=== PATIENT | female | born 1985 | race Caucasian/White ===

== ENCOUNTER 2018-04-21 14:45 | Emergency (ER) | payer BC ==
--- NOTE | 2018-04-21 15:29 | EDPHYS ---
Physician Documentation [facility] Name: Nannette Rojo Age: 32 yrs Sex: Female : 1985 Arrival Date: 04/21/2018 Time: 14:49 Bed 11 Private MD: Jeremy Zaidi ED Physician Orestes Pena HPI: 04/21 15:15 This 32 yrs old Female presents to ER via Ambulatory with complaints of Open kav Wound. 15:23 The patient presents with cellulitis of the left leg and left dumont. Description: The kav affected area is very small, confluent, draining, erythematous. Onset: The symptoms/episode began/occurred 6 month(s) ago. Possible cause(s): insect sting, spider bite. Associated signs and symptoms: The patient has no apparent associated signs or symptoms. Modifying factors: the symptoms are alleviated by nothing, the symptoms are aggravated by shaving leg. Severity of symptoms: At their worst the symptoms were mild, just prior to arrival. The patient has experienced similar episodes in the past, a few times, and the symptoms today are exactly the same. The patient has not recently seen a physician. 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 - Social history:: Smoking status: Patient/guardian denies using tobacco. - Ebola Screening: : Patient negative for fever greater than or equal to 101.5 degrees Fahrenheit, and additional compatible Ebola Virus Disease symptoms Patient denies exposure to infectious person Patient denies travel to an Ebola-affected area in the 21 days before illness onset No symptoms or risks identified at this time. - Family history:: not pertinent. - Hospitalizations: : No recent hospitalization is reported. ROS: 15:23 Constitutional: Negative for fever, chills, and weight loss, Eyes: Negative for injury, kav pain, redness, and discharge, ENT: Negative for injury, pain, and discharge, Neck: Negative for injury, pain, and swelling, Cardiovascular: Negative for chest pain, palpitations, and edema, Respiratory: Negative for shortness of breath, cough, wheezing, and pleuritic chest pain, Abdomen/GI: Negative for abdominal pain, nausea, vomiting, diarrhea, and constipation, Back: Negative for injury and pain, : Negative for injury, bleeding, discharge, and swelling, MS/Extremity: Negative for injury and deformity, Neuro: Negative for headache, weakness, numbness, tingling, and seizure, Psych: Negative for depression, anxiety, suicide ideation, homicidal ideation, and hallucinations, Allergy/Immunology: Negative for hives, rash, and allergies, Endocrine: Negative for neck swelling, polydipsia, polyuria, polyphagia, and marked weight changes, Hematologic/Lymphatic: Negative for swollen nodes, abnormal bleeding, and unusual bruising. 15:23 Skin: Positive for cellulitis, of the . Exam: 15:23 Constitutional: This is a well developed, well nourished patient who is awake, alert, kav and in no acute distress. Head/Face: Normocephalic, atraumatic. Eyes: Pupils equal round and reactive to light, extra-ocular motions intact. Lids and lashes normal. Conjunctiva and sclera are non-icteric and not injected. Cornea within normal limits. Periorbital areas with no swelling, redness, or edema. ENT: Nares patent. No nasal discharge, no septal abnormalities noted. Tympanic membranes are normal and external auditory canals are clear. Oropharynx with no redness, swelling, or masses, exudates, or evidence of obstruction, uvula midline. Mucous membranes moist. Neck: Trachea midline, no thyromegaly or masses palpated, and no cervical lymphadenopathy. Supple, full range of motion without nuchal rigidity, or vertebral point tenderness. No Meningismus. Chest/axilla: Normal chest wall appearance and motion. Nontender with no deformity. No lesions are appreciated. Cardiovascular: Regular rate and rhythm with a normal S1 and S2. No gallops, murmurs, or rubs. Normal PMI, no JVD. No pulse deficits. Respiratory: Lungs have equal breath sounds bilaterally, clear to auscultation and percussion. No rales, rhonchi or wheezes noted. No increased work of breathing, no retractions or nasal flaring. Abdomen/GI: Soft, non-tender, with normal bowel sounds. No distension or tympany. No guarding or rebound. No evidence of tenderness throughout. Back: No spinal tenderness. No costovertebral tenderness. Full range of motion. MS/ Extremity: Pulses equal, no cyanosis. Neurovascular intact. Full, normal range of motion. Neuro: Awake and alert, GCS 15, oriented to person, place, time, and situation. Cranial nerves II-XII grossly intact. Motor strength 5/5 in all extremities. Sensory grossly intact. Cerebellar exam normal. Normal gait. Psych: Awake, alert, with orientation to person, place and time. Behavior, mood, and affect are within normal limits. 15:23 Skin: cellulitis, that is mild, confluent, on the left dumont. Vital Signs: 15:09 BP 130 / 75; Pulse 84; Resp 18; Temp 98.0; Pulse Ox 98% on R/A; Weight 80.74 kg; Height aj 5 ft. 5 in. (165.10 cm); 15:09 Body Mass Index 29.62 (80.74 kg, 165.10 cm) MDM: 15:14 Medical screening is not applicable. formerly [facility] 15:23 Data reviewed: vital signs, nurses notes. ka Administered Medications: No medications were administered Disposition: 16:10 Co-signature as Attending Physician, Orestes Pena MD I agree with the assessment and kdr plan of care. Disposition: 04/21/18 15:29 Discharged to Home. Impression: Cellulitis of left lower limb. - Condition is Stable. - Discharge Instructions: Cellulitis, [id number]. - Prescriptions for Bactroban 2 % Topical Ointment - Apply to affected area 1 application by TOPICAL route every 12 hours; 15 gram. Bactrim DS 800- 160 mg Oral Tablet - take 1 tablet by ORAL route every 12 hours for 10 days; 20 tablet. - Medication Reconciliation Form, Thank You Letter, Antibiotic Education, Prescription Opioid Use form. - Follow up: Jeremy Zaidi MD; When: 5 - 6 days; Reason: If symptoms return, Recheck today's complaints, Continuance of care, Re-evaluation by your physician. - Problem is new. - Symptoms have improved. Signatures: Fang Trujillo RN RN aj Rittger, Kevin, MD MD kdr Vern, Katherine, ENTERPRISE APPLICATION ARCHITECT ENTERPRISE APPLICATION ARCHITECT Tracey Carter RN RN iw Corrections: (The following items were deleted from the chart) 15:23 15:23 The patient was bitten on the left dumont, by an unknown animal, ezequiel nieves 15:39 15:29 04/21/2018 15:29 Discharged to Home. Impression: Cellulitis of left lower limb. iw Condition is Stable. Forms are Medication Reconciliation Form, Thank You Letter, Antibiotic Education, Prescription Opioid Use. Follow up: Jeremy Zaidi; When: 5 - 6 days; Reason: If symptoms return, Recheck today's complaints, Continuance of care, Re-evaluation by your physician. Problem is new. Symptoms have improved. ezequiel
--- NOTE | 2018-04-21 15:29 | ER ---
Nurse's Notes [facility] Name: Nannette Rojo Age: 32 yrs Sex: Female : 1985 Arrival Date: 04/21/2018 Time: 14:49 Bed 11 Private MD: Jeremy Zaidi Diagnosis: Cellulitis of left lower limb Presentation: 04/21 15:07 Presenting complaint: Patient states: Non healing wound to left dumont for "months". Seen aj in an ER for same complaint in October and november. Transition of care: patient was not received from another setting of care. Onset of symptoms was October 2017. Risk Assessment: Do you want to hurt yourself or someone else? Patient reports no desire to harm self or others. Care prior to arrival: None. 15:07 Method Of Arrival: Ambulatory aj 15:07 Acuity: FILMOENA 5 aj 15:39 Initial Sepsis Screen: Does the patient meet any 2 criteria? No. Patient's initial iw sepsis screen is negative. Does the patient have a suspected source of infection? No. Patient's initial sepsis screen is negative. Triage Assessment: 15:09 General: Appears in no apparent distress. comfortable, Behavior is calm, cooperative, aj appropriate for age. Neuro: Level of Consciousness is awake, alert, obeys commands, Oriented to person, place, time, situation, Appropriate for age. Respiratory: Airway is patent Respiratory effort is even, unlabored, Respiratory pattern is regular, symmetrical. Derm: Skin is intact, is healthy with good turgor, Skin is pink, warm \\T\\ dry. normal, Abscess located on left dumont. 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 - Social history:: Smoking status: Patient/guardian denies using tobacco. - Ebola Screening: : Patient negative for fever greater than or equal to 101.5 degrees Fahrenheit, and additional compatible Ebola Virus Disease symptoms Patient denies exposure to infectious person Patient denies travel to an Ebola-affected area in the 21 days before illness onset No symptoms or risks identified at this time. - Family history:: not pertinent. - Hospitalizations: : No recent hospitalization is reported. Screenin:25 Abuse screen: Denies threats or abuse. Denies injuries from another. Nutritional iw screening: No deficits noted. Tuberculosis screening: No symptoms or risk factors identified. Fall Risk None identified. Assessment: 15:25 General: Appears in no apparent distress. comfortable, Behavior is calm, cooperative. iw Pain: Complains of pain in left dumont. Neuro: Level of Consciousness is awake, alert, obeys commands, Oriented to person, place, time, situation, Moves all extremities. Full function. Cardiovascular: Patient's skin is warm and dry. Respiratory: Respiratory effort is even, unlabored, Respiratory pattern is regular, symmetrical. GI: No signs and/or symptoms were reported involving the gastrointestinal system. Derm: Skin is pink, warm \\T\\ dry. normal. Musculoskeletal: Range of motion: intact in all extremities. Vital Signs: 15:09 BP 130 / 75; Pulse 84; Resp 18; Temp 98.0; Pulse Ox 98% on R/A; Weight 80.74 kg; Height aj 5 ft. 5 in. (165.10 cm); 15:09 Body Mass Index 29.62 (80.74 kg, 165.10 cm) aj ED Course: 14:49 Patient arrived in ED. mr 14:49 Jeremy Zaidi MD is Private Physician. mr 15:09 Triage completed. aj 15:09 Arm band placed on left wrist. Patient placed in waiting room, Patient notified of wait aj time. 15:13 Tracey Garcia, RN is Primary Nurse. iw 15:14 Mariaelena Lee FNP is PHCP. kav 15:14 Orestes Pena MD is Attending Physician. kav 15:25 Patient has correct armband on for positive identification. iw 15:25 No provider procedures requiring assistance completed. Patient did not have IV access iw during this emergency room visit. 15:27 Jeremy Zaidi MD is Referral Physician. kav Administered Medications: No medications were administered Outcome: 15:25 Discharged to home ambulatory, with family. iw 15:25 Condition: good 15:25 Discharge instructions given to patient, Instructed on discharge instructions, follow up and referral plans. medication usage, Demonstrated understanding of instructions, follow-up care, medications, Prescriptions given X 2. 15:29 Discharge ordered by . kaveda 15:39 Patient left the ED. iw Signatures: Fang Trujillo, Mariaelena Kenney RN, Roselyn Mccullough mr Tracey Garcia RN RN iw
[2018-04-21 15:55] VITALS: BP 130/75; TEMP 98; O2SAT 98
== END 2018-04-21 15:39 | disposition home or self-care (01) ==
LOC: ER 14:45
DX: L03.116 Cellulitis of left lower limb (principal)
CPT/HCPCS: 99282

== ENCOUNTER 2023-09-04 08:28 | Emergency (ER) | payer OTHER ==
--- OUTSIDE RECORDS SUMMARY | 2023-09-04 08:31 | XMS REPORT | Continuity of Care Document ---
:1985 Author Organization [facility] t Address [address] [place] [address] Care Team Providers Name Role Phone Pcp, Patient Does Not Have A Primary Care Physician [id number] Neha Ramos Attending Clinician Unavailable [email or web address] Attending Clinician Unavailable ROSHNI GUERRERO Attending Clinician Unavailable GRIS TATE Attending Clinician Unavailable YARIEL LYONS Attending Clinician Unavailable Doctor Unassigned, [place] Attending Clinician Unavailable RISHABH DEMRACO Attending Clinician Unavailable [email or web address] Admitting Clinician Unavailable Payers Payer Name Policy Type Policy Effective Date Expiration Date Sour ce Number 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 See scanned records History of History of Disease Active Overview : Univers 6-15 Formattin ity o f delivery, delivery, 00:00: [place] of this [place] currently currently 00 note Medi [facility] might be Bran ch different from the original. As per patient because of oligohydr amnios and IUGROnly 1 all others were term History of History of Disease Active 2015- U nivers oligohydra oligohydra 6-15 it y of mnios in mnios in 00:00: [place] prior prior 00 Medical , , Br anch currently currently Multiparit Multiparit Disease Active U nivers y y 6-15 ity of 00:00: [place] 00 Medical Branch Supervisio Supervisio Disease Active U nivers n of high n of high 6-15 ity of risk risk 00:00: [place] , , 00 Me dical antepartum antepartum Br anch Obesity Obesity Disease Active Univers affecting affecting 6-15 [place] History of History of Disease Active U nivers stomach stomach 6-15 ity of cancer cancer 00:00: [place] 00 Medical Branch History of History of Disease Active U nivers prior prior 6-15 [place] with IUGR with IUGR 00 [facility] Branch [id number] Thyroid Problem Active Commo n nodule [facility] Allergies, Adverse Reactions, Alerts Allergy Allergy Status Severity Reaction(s) Onset Inactive Treating Comm ents Source Name Type Date Date Clinician NO KNOWN Drug Active Univers ALLERGIE Class ity of S [facility] Social History Social Habit Start Date Stop Date Quantity Comments Source History of Tobacco [facility] - Use [facility] Sexual orientation Univer [facility] Exposure to 2021-05-17 2021-06-16 Yes University of SARS-CoV-2 (event) 00:00:00 10:56:00 [facility] Alcohol intake 2019-04-10 2019-04-10 0 /d University of 00:00:00 00:00:00 [facility] History of Social 2019-04-10 2019-04-10 Univers ity of function 00:00:00 00:00:00 [facility] Tobacco use and 2013-05-09 2013-05-09 Smokeless Universit y of exposure 00:00:00 00:00:00 tobacco non-user [facility] Sex Assigned At [birth year] Universit y of 00:00:00 00:00:00 [facility] Smoking Status Start Date Stop Date Source Never Smoker [facility] Medications Ordered Filled Start Stop Current Ordering Indication Dosage Frequency Signature Comments Components Source Medication Medication Date Date Medication? Clinician (SIG) Name Name proMETHazin Yes [id number] 25mg Take 1 Univers e 7-14 tablet by ity of (PHENERGAN) 00:00: mouth [place] 25 mg 00 every 6 Medical tablet (six) Branch hours as needed for Nausea and Vomiting (N/V). PNV without Yes [id number] 1{each} Take 1 Univers Ca-Iron 6-15 Each by ity of PsCmplx-FA 00:00: mouth Shukri (SELECT-OB, 00 daily. Medica l FOLIC Branch ACID,) 29-1 mg Chew Prilosec 10 Prilosec 10 No Prilosec MG MG 10 MG No 1{table QD 28-0.8 MG 28-0.8 MG t} 28-0.8 MG Magnesium Magnesium No Magnesium 400 MG 400 MG 400 MG Calcium 600 Calcium 600 No 1{table BID Calcium MG MG t_with_ 600 MG meals} Gentle Iron Gentle Iron No 1{capsu QD Gentle 28-60-0.008 28-60-0.008 le} Iron -0.4 MG -0.4 MG 28-60-0.00 8-0.4 MG Potassium Potassium No 1{table QD Potassium 99 MG 99 MG t} 99 MG Immunizations Ordered Filled Date Status Comments Source Immunization Name Immunization Name Pneumovax (PPSV23) Pneumovax (PPSV23) 2020-10-01 Completed Common [facility] - 09:53:00 [facility] Flucelvax - single Flucelvax - single 2020-08-13 Completed [facility] - dose syringe dose syringe 09:59:00 [facility] TDAP Unknown Completed [facility] Vital Signs Vital Name Observation Time Observation Value Comments Source height 2021-01-02 16:00:00 64.5 [in_i] [facility] weight 2021-01-02 16:00:00 192 [lb_av] [facility] temperature 2021-01-02 16:00:00 97.9 [degF] [facility] bmi 2021-01-02 16:00:00 32.44 kg/m2 [facility] oximetry 2021-01-02 16:00:00 100 % [facility] respiratory rate 2021-01-02 16:00:00 16 /min Comm on [facility] blood pressure 2021-01-02 16:00:00 107 mm[Hg] Common [facility] - systolic [facility] blood pressure 2021-01-02 16:00:00 61 mm[Hg] Common [facility] - diastolic [facility] Procedures This patient has no known procedures. Encounters Start End Encounter Admission Attending Care Care Encounter Source Date/Time Date/Time Type Type Clinicians Facility Department ID 2022-05-27 Outpatient [place], STLMLC STLMLC [id number] Common 15:16:00 Neha [facility] 2021-12-04 Outpatient [place], STLMLC STLMLC [id number] Common 14:15:51 Neha [id number] [facility] 2021-12-04 Outpatient [place], STLMLC STLMLC [id number] Common 12:33:14 Neha [facility] 2021-12-04 Outpatient [place], STLMLC STLMLC [id number] Common 12:32:16 Neha [id number] [facility] 2021-12-04 Outpatient [place], STLMLC STLMLC [id number] Common 12:07:28 Neha [id number] [facility] 2023-09-02 2023-09-02 Outpatient GC_GCBZW_Ka PRIV PRIV [id number] [facility] 00:00:00 00:00:00 diyala_S [id number] Medic al 2023-08-02 2023-08-02 Outpatient GC_GCBZW_Ka PRIV PRIV [id number] [facility] 00:00:00 00:00:00 diyala_S [id number] Medic al 2023-08-02 2023-08-02 Outpatient GC_GCBZW_Ka PRIV PRIV [id number] [facility] 00:00:00 00:00:00 diyala_S [id number] Medic al 2023-08-02 2023-08-02 Outpatient GC_GCBZW_Ka PRIV PRIV [id number] [facility] 00:00:00 00:00:00 diyala_S [id number] Medic al 2023-07-31 2023-07-31 Outpatient GC_GCBZW_Ka PRIV PRIV [id number] [facility] 00:00:00 00:00:00 diyala_S [id number] Medic al 2023-07-30 2023-07-30 Outpatient GC_GCBZW_Ka PRIV PRIV [id number] [facility] 00:00:00 00:00:00 diyala_S [id number] Medic al 2023-07-17 2023-07-17 Outpatient GC_GCBZW_Ka PRIV PRIV [id number] [facility] 00:00:00 00:00:00 diyala_S [id number] Medic al 2023-07-16 2023-07-16 Outpatient GC_GCBZW_Ka PRIV PRIV [id number] [facility] 00:00:00 00:00:00 diyala_S [id number] Medic al 2023-05-27 2023-05-27 Outpatient GC_GCBZW_Ka PRIV PRIV [id number] [facility] 00:00:00 00:00:00 diyala_S [id number] Medic al 2023-05-25 2023-05-25 Outpatient GC_GCBZW_Ka PRIV PRIV [id number] [facility] 00:00:00 00:00:00 diyala_S [id number] Medic al 2022-01-10 2022-01-10 Outpatient R ROSHNI GUERRERO [facility] [id number] Univers [facility] 2021-12-27 Outpatient R ROSHNI GUERRERO [facility] [id number] Univers 14:00:00 14:00:00 [facility] 2021-07-20 2021-07-20 Outpatient R BEBETO [facility] [id number] Univers 08:00:00 [facility]:00:[facility] 2021-06-16 Outpatient R SERENA [facility] [id number] Univers 17:40:00 17:40:00 , YARIEL escamilla [facility] 2021-01-02 2021-01-02 OFFICE STLMLC STLMLC [id number] mmon 00:00:00 00:00:00 VISIT EST Spir it PT LEVEL 3 - [facility] 2020-07-14 2020-07-14 Patient Doctor ELMIRA [id number] Univers 00:00:00 00:00:00 Secure Msg Unassigned, YOHANNES [id number] ity of [place] [facility] [id number] Eric as [phone] [address] 2020-07-13 2020-07-13 Outpatient Horacio DEMARCO [facility] [id number] Univers 08:40:00 08:40:00 RISHABH escamilla [facility] Results This patient has no known results.
[2023-09-04 09:21] LABS: SARS-CoV-2 Antigen Rapid Res Negative (Negative)
--- NOTE | 2023-09-04 09:24 | EDPHYS ---
Physician Documentation [facility] Name: Nannette Rojo Age: 38 yrs Sex: Female : 1985 Arrival Date: 09/04/2023 Time: 08:28 Bed IW1 Private MD: ED Physician Yefri Bocanegra HPI: 09/04 08:53 This 38 yrs old Female presents to ER via Ambulatory with complaints of Flu Symptoms. sb4 08:53 Onset: The symptoms/episode began/occurred 5 day(s) ago. Associated signs and symptoms: sb4 Pertinent positives: congestion, cough, fever, headache, sore throat, Pertinent negatives: chest pain, shortness of breath. Modifying factors: The patient symptoms are alleviated by acetaminophen, ibuprofen, the patient symptoms are aggravated by nothing. The patient has not experienced similar symptoms in the past, but family has similar symptoms, daughter. The patient has not recently seen a physician. Historical: - Allergies: 08:43 No Known Allergies; hb - PMHx: 08:43 abdominal cancer; hb - Immunization history:: Adult Immunizations up to date. - Social history:: Smoking status: Patient denies any tobacco usage or history of. ROS: 09:30 Cardiovascular: Negative for chest pain, palpitations, and edema, Skin: Negative for sb4 injury, rash, and discoloration, Neuro: Negative for headache, weakness, numbness, tingling, and seizure, 09:30 Constitutional: Positive for fatigue, fever, 09:30 ENT: Positive for sinus congestion, sore throat, 09:30 Respiratory: Positive for cough, 09:30 Abdomen/GI: Positive for nausea, 09:30 All other systems are negative, Exam: 09:30 Constitutional: This is a well developed, well nourished patient who is awake, alert, sb4 and in no acute distress. Head/Face: Normocephalic, atraumatic. Eyes: Extra-ocular motions intact. Periorbital areas with no swelling, redness, or edema. Cardiovascular: Regular rate and rhythm with a normal S1 and S2. Respiratory: Lungs have equal breath sounds bilaterally, clear to auscultation and percussion. No rales, rhonchi or wheezes noted. No increased work of breathing, no retractions or nasal flaring. Skin: Warm, dry with normal turgor. Normal color with no rashes, no lesions, and no evidence of cellulitis. MS/ Extremity: Pulses equal, no cyanosis. Neurovascular intact. Full, normal range of motion. Neuro: Awake and alert, GCS 15, oriented to person, place, time, and situation. Motor strength 5/5 in all extremities. Sensory grossly intact. 09:30 ENT: sinus tenderness, nasal congestion. Vital Signs: 08:43 BP 126 / 88; Pulse 78; Resp 16; Temp 99(TE); Pulse Ox 100% on R/A; Weight 79.38 kg; hb Height 5 ft. 5 in. ; Pain 6/10; 08:43 Body Mass Index 29.12 (79.38 kg, 165.1 cm) hb 08:43 Pain Scale: Adult hb MDM: 08:48 Patient medically screened. sb4 09:30 Differential diagnosis: viral Infection, bacterial infection, URI, bronchitis. Data sb4 reviewed: vital signs, nurses notes, lab test result(s), and as a result, I will discharge patient. Counseling: I had a detailed discussion with the patient and/or guardian regarding the historical points, exam findings, and any diagnostic results supporting the discharge/admit diagnosis, lab results, to return to the emergency department if symptoms worsen or persist or if there are any questions or concerns that arise at home. 09/04 08:46 Order name: SARS RAPID; Complete Time: 09:23 sb4 09/04 08:46 Order name: Flu; Complete Time: 09:23 sb4 Administered Medications: No medications were administered Disposition: 09:49 Co-signature as Attending Physician, Yefri Bocanegra MD I reviewed the patient's care rt provided by the Advanced Practice Provider and agree with the diagnosis and treatment plan. Disposition Summary: 09/04/23 09:23 Discharge Ordered Notes: Location: Home sb4 Problem: an ongoing problem sb4 Symptoms: are unchanged sb4 Condition: Stable sb4 Diagnosis - Acute upper respiratory infection, unspecified sb4 Followup: sb4 - With: Emergency Department - When: As needed - Reason: Trouble breathing, Worsening of condition Discharge Instructions: - Discharge Summary Sheet sb4 - Upper Respiratory Infection, Adult, [id number] sb4 Forms: - Work release form hb - Medication Reconciliation Form sb4 - Thank You Letter sb4 - Antibiotic Education sb4 - Prescription Opioid Use sb4 - Patient Portal Instructions sb4 - Leadership Thank You Letter sb4 Prescriptions: - Augmentin 875-125 mg Oral Tablet - take 1 tablet ORAL route every 12 hours for 10 days; 20 tablet; Refills: 0, sb4 Product Selection Permitted - Medrol (Jayro) 4 mg Oral Tablets, Dose Pack - take 1 tablet ORAL route as directed - follow package instructions; 1 packet; sb4 Refills: 0, Product Selection Permitted Signatures: Dispatcher [employer] Kortney Simmons, Flori Singh RN, PA-C PAJbC sb4 Yefri Bocanegra MD MD rt
--- NOTE | 2023-09-04 09:24 | ER ---
Nurse's Notes [facility] Name: Nannette Rojo Age: 38 yrs Sex: Female : 1985 Arrival Date: 09/04/2023 Time: 08:28 Bed IW1 Private MD: Diagnosis: Acute upper respiratory infection, unspecified Presentation: 09/04 08:43 Chief complaint: Runny nose, congestion, headache, dizziness, nausea, fever, sore hb throat, and body aches x 4 days. Coronavirus screen: Client presents with at least one sign or symptom that may indicate coronavirus-19. Standard/surgical mask placed on the client. Provider contacted for isolation considerations. Ebola Screen: No symptoms or risks identified at this time. Initial Sepsis Screen: Does the patient meet any 2 criteria? No. Patient's initial sepsis screen is negative. Does the patient have a suspected source of infection? No. Patient's initial sepsis screen is negative. Risk Assessment: Do you want to hurt yourself or someone else? Patient reports no desire to harm self or others. Onset of symptoms was September 01, 2023. 08:43 Method Of Arrival: Ambulatory hb 08:43 Acuity: FILOMENA 4 hb Triage Assessment: 08:45 General: Appears in no apparent distress. Behavior is calm, cooperative. Pain: Pain hb currently is 6 out of 10 on a pain scale. EENT: Reports sore throat. Neuro: Level of Consciousness is awake, alert, obeys commands, Oriented to person, place, time, situation. Cardiovascular: Patient's skin is warm and dry. Respiratory: Reports cough that is Respiratory effort is even, unlabored, Respiratory pattern is regular, symmetrical. GI: Reports nausea. : No signs and/or symptoms were reported regarding the genitourinary system. Derm: Skin is pink, warm \T\ dry. Musculoskeletal: Reports body aches. Historical: - Allergies: 08:43 No Known Allergies; hb - PMHx: 08:43 abdominal cancer; hb - Immunization history:: Adult Immunizations up to date. - Social history:: Smoking status: Patient denies any tobacco usage or history of. Screenin:00 [facility] ED Fall Risk Assessment (Adult) Score/Fall Risk Level 0 - 2 = Low Risk hb Oriented to surroundings, Maintained a safe environment. Abuse screen: Denies threats or abuse. Denies injuries from another. Nutritional screening: No deficits noted. Tuberculosis screening: No symptoms or risk factors identified. Assessment: 09:28 General: See triage assessment . hb Vital Signs: 08:43 BP 126 / 88; Pulse 78; Resp 16; Temp 99(TE); Pulse Ox 100% on R/A; Weight 79.38 kg; hb Height 5 ft. 5 in. ; Pain 6/10; 08:43 Body Mass Index 29.12 (79.38 kg, 165.1 cm) hb 08:43 Pain Scale: Adult hb ED Course: 08:31 Patient arrived in ED. ts1 08:32 [facility] Velasquez [facility]. sb4 08:32 Yefri Bocanegra MD is Attending Physician. sb4 08:45 Triage completed. hb 08:45 Arm band placed on. hb 08:51 SARS RAPID Sent. hb 08:51 Flu Sent. hb 09:00 Patient has correct armband on for positive identification. Provided Education on: . hb 09:29 No provider procedures requiring assistance completed. Patient did not have IV access hb during this emergency room visit. Administered Medications: No medications were administered Medication: 09:28 VIS not applicable for this client. hb Outcome: 09:23 Discharge ordered by . sb4 09:29 Discharged to home ambulatory, hb 09:29 Condition: stable 09:29 Discharge instructions given to patient, Instructed on discharge instructions, follow up and referral plans. medication usage, Demonstrated understanding of instructions, follow-up care, medications, Prescriptions given X 2, 09:35 Patient left the ED. hb Signatures: Kortney Kaur RN RN Flori Kaur PA-C PA-C sb4 Shira Lino PAS PAS ts1
[2023-09-04 09:40] VITALS: BP 126/88; TEMP 99; O2SAT 100
== END 2023-09-04 09:35 | disposition home or self-care (01) ==
LOC: ER 08:28
DX: J06.9 Acute upper respiratory infection, unspecified (principal); Z11.52 Encounter for screening for COVID-19
CPT/HCPCS: 36415; 87804; 87811; 99283